=== PATIENT | male | born 1995 | race Asian ===

== ENCOUNTER 2023-12-02 04:20 | Day surgery (SDC) | payer BC, OTHER ==
[2023-11-30 13:34] VITALS: BMI 28.7
[2023-12-02] MEDS ORDERED: DEXAMETHASONE SOD PHOSPHATE 4 MG/1 ML VIAL ONE (08:27)
[2023-12-02] MEDS ORDERED: LIDOCAINE HCL 2% JELLY 6 ML TP ONE (08:27)
[2023-12-02] MEDS ORDERED: SUCCINYLCHOLINE CHLORIDE 200 MG/10 ML SYRINGE ONE (08:30)
[2023-12-02] MEDS ORDERED: PROPOFOL 20 ML ONE (08:33)
[2023-12-02] MEDS ORDERED: ROCURONIUM BROMIDE 50 MG/5 ML SYRINGE ONE (08:43)
[2023-12-02] MEDS ORDERED: oxyCODONE HCL 5 MG TABLET PO PRN (09:06)
[2023-12-02] MEDS ORDERED: ONDANSETRON 4 MG/2 ML VIAL IVPUSH PRN ×2 (09:06→12:36)
[2023-12-02] MEDS ORDERED: LACTATED RINGERS SOLUTION 1,000 ML IV SCH ×2 (09:15→12:45)
[2023-12-02] MEDS ORDERED: COCAINE HCL 4% TOPICAL SOLUTION 4 ML BOTTLE TP ONE (09:17)
[2023-12-02] MEDS ORDERED: ACETAMINOPHEN INJECTION 100 ML IVPB ONE (09:25)
[2023-12-02] MEDS ORDERED: DEXMEDETOMIDINE HCL 200 MCG/2 ML IVPB ONE (09:25)
[2023-12-02] MEDS ORDERED: LIDOCAINE 1%/EPI 1:100000 (20 ML MULTI DOSE VIAL) ONE (09:53)
[2023-12-02] MEDS ORDERED: ceFAZolin SODIUM 1 GM VIAL ONE (10:40)
[2023-12-02] MEDS ORDERED: MIDAZOLAM HCL 2 MG/2 ML SINGLE DOSE VIAL ONE (10:40)
[2023-12-02] MEDS ORDERED: SODIUM CHLORIDE 0.9% P/F 10 ML VIAL IJ ONE (10:40)
[2023-12-02] MEDS: ceFAZolin SODIUM 1 GM VIAL IVPB ONE (10:52)
[2023-12-02] MEDS: COCAINE HCL 4% TOPICAL SOLUTION 4 ML BOTTLE TP ONE (11:04)
[2023-12-02] MEDS: LIDOCAINE 1%/EPI 1:100000 (20 ML MULTI DOSE VIAL) IJ ONE (11:16)
[2023-12-02] MEDS ORDERED: BACITRACIN ZINC 15 GM TUBE TOPICAL OINTMENT ONE (12:17)
[2023-12-02] MEDS ORDERED: SUGAMMADEX SODIUM 200 MG/2 ML VIAL ONE (12:19)
[2023-12-02] MEDS ORDERED: PROMETHAZINE HCL 25 MG/1 ML VIAL IVPB PRN (12:36)
[2023-12-02] MEDS ORDERED: oxyCODONE HCL 5 MG TABLET ONE (14:07)
[2023-12-02] MEDS: oxyCODONE HCL 5 MG TABLET PO PRN (14:16)
[2023-12-02 15:25] VITALS: RESP 18; TEMP 97.8
[2023-12-02 15:27] VITALS: BP 144/89; PULSE 67
== END 2023-12-02 15:33 | disposition home or self-care (01) ==
LOC: JASU-SURG 04:20
PROVIDERS: ATTEND Otolaryngology
PROC: 09TL8ZZ Resection of Nasal Turbinate, Via Natural or Artificial Opening Endoscopic (ICD-10-PCS; 2023-12-02)
PROC: 8E09XBZ Computer Assisted Procedure of Head and Neck Region (ICD-10-PCS; 2023-12-02)
PROC: 09BM8ZZ Excision of Nasal Septum, Via Natural or Artificial Opening Endoscopic (ICD-10-PCS; principal; 2023-12-02 09:00)
DX: J34.2 Deviated nasal septum (principal); J34.3 Hypertrophy of nasal turbinates
CPT/HCPCS: 86850; 86900; 86901; 88304-TC; 94760; J0131